=== PATIENT | male | born 1955 ===

== ENCOUNTER 2021-03-21 09:01 | Outpatient (CLI) | payer OTHER | END 2021-03-21 09:51 | disposition home or self-care (01) | LOC: SONOGRAMA 09:01 | PROVIDERS: ATTEND Pathology Anatomic Pathology & Clinical Pathology | DX: D34 Benign neoplasm of thyroid gland (principal); E07.89 Other specified disorders of thyroid; E04.1 Nontoxic single thyroid nodule; E04.2 Nontoxic multinodular goiter ==